=== PATIENT | female | born 1965 | race Caucasian/White ===

== ENCOUNTER 2018-12-31 09:03 | Outpatient (CLI) | payer OTHER | END 2018-12-31 09:09 | disposition home or self-care (01) | LOC: SONOGRAMA 09:03 | DX: E04.1 Nontoxic single thyroid nodule (principal) ==

== ENCOUNTER 2019-01-01 16:45 | Outpatient (CLI) | payer OTHER | END 2019-01-01 16:53 | disposition home or self-care (01) | LOC: LAB 16:45 | DX: N39.0 Urinary tract infection, site not specified (principal); D68.8 Other specified coagulation defects ==

== ENCOUNTER 2019-01-07 10:24 | Inpatient (IN) | payer OTHER ==
[~2019-01-07] VITALS: Ht 160 cm; Wt 53.5 kg
[2019-01-07] MEDS ORDERED: ZOLOFT25 MG PO (11:07)
== END 2019-01-12 09:35 | DRG 743 ==
LOC: SURH 01-11 09:30 → O/R 01-11 10:40 → OB/GYN 01-11 19:16
PROVIDERS: ADMIT Obstetrics & Gynecology
PROC: 0UT74ZZ Resection of Bilateral Fallopian Tubes, Percutaneous Endoscopic Approach (ICD-10-PCS; 2019-01-11)
PROC: 0UT24ZZ Resection of Bilateral Ovaries, Percutaneous Endoscopic Approach (ICD-10-PCS; 2019-01-11)
PROC: 0UT94ZZ Resection of Uterus, Percutaneous Endoscopic Approach (ICD-10-PCS; principal; 2019-01-11 09:30)
DX: D25.1 Intramural leiomyoma of uterus (principal); N80.0 Endometriosis of uterus; E04.1 Nontoxic single thyroid nodule

== ENCOUNTER 2023-08-24 09:53 | Outpatient (CLI) | payer OTHER ==
[~2023-08-24 09:53] MED LIST: ZOLOFT25 MG PO
== END 2023-08-24 09:57 | disposition home or self-care (01) ==
LOC: SONOGRAMA 09:53
PROVIDERS: ATTEND Pathology Anatomic Pathology & Clinical Pathology
DX: D34 Benign neoplasm of thyroid gland (principal); E04.9 Nontoxic goiter, unspecified